=== PATIENT | female | born 1990 | race Caucasian/White ===

== ENCOUNTER → 2021-09-01 | Outpatient (CLI) | payer BC, SELFPAY ==
--- NOTE | 2021-09-01 | CER_PTH ---
PATIENT: ELIZABETH BRITTON LOC: [facility]#:[id number] AGE/SX: 31/F ROOM: RE09/01/[address]: Dr. Carley Fuentes DO : 1990 BED: DIS: 09/01/2021 SPEC #: [id number] RECD: 09/01/21 12:21 STATUS: ARCHANA MACKENZIE #: [id number] MINNIE: 09/01/21 00:[address]: Carley Fuentes DEPT: SURGICAL PATHOLOGY RECD BY: Elmo Turner ENTERED: 09/01/21 12:21 SP TYPE: CERV OTHR DR: Sandra Primary Care Phys Tissues: A - Uterine cervix, NOS B - Endocervical Procedures: Surgery Specimen Level IV HEADER OPERATION: Colposcopy PRE-OP DIAGNOSIS: LGSIL TISSUE SUBMITTED: A - 9 o?clock, B ? Endocervical curettings MICROSCOPIC DIAGNOSIS A. Cervix at 9 o?clock, biopsy: Focal HPV change present. Chronic inflammation and squamous metaplasia. See comment. B. Endocervix, curettings: Rare detached benign glandular and squamous epithelial cells. AM:rodger 09/02/2021 COMMENT A. Results from immunohistochemistry ([id number]) for surrogate HPV marker (p16) will be reported separately. Case has been reviewed in consultation with Dr. Hightower who concurs with the above diagnosis. IDC:[email or web address] MICROSCOPIC DESCRIPTION Slides are reviewed. GROSS DESCRIPTION A - Received in fixative is one container labeled with the patient's name and designated 9 o'clock cervix. The specimen consists of one irregular fragment of light mendez soft tissue that measures 0.4 x 0.4 x 0.1 cm. The specimen is totally submitted in one cassette. B - Received in fixative is one container labeled with the patient's name and designated endocervical curettings. The specimen consists of a scant amount of soft tissue. The specimen is totally submitted for cell block preparation. / JANAY:rodger 09/01/2021 TC:3 CPT: 62351 x2
--- NOTE | 2021-09-01 | IMM_PTH ---
PATIENT: ELIZABETH BRITTON LOC: [facility] U#:[id number] AGE/SX: 31/F ROOM: RE09/01/[address]: Dr. Carley Fuentes DO : 1990 BED: DIS: 09/01/2021 SPEC #: [id number] RECD: 09/02/21 14:02 STATUS: ARCHANA REDory #: [id number] MINNIE: 09/01/21 00:[address]: Carley Fuentes DEPT: IMMUNOHISTOCHEMISTRY RECD BY: Renita Brito ENTERED: 09/02/21 14:03 SP TYPE: IMMUNO OTHR DR: Sandra Primary Care Phys Tissues: A - Uterine cervix, NOS Procedures: p16 (initial) KI-67 (add) PHYSICIAN & INSTITUTION [place] [phone] SPECIMEN INFORMATION: Tissue Source: A ? Cervix at 9 o?clock Clinical Info: [facility] Specimen Number: [id number] CPT code: 26549, 69661 METHODOLOGY: Deparaffinized sections of prefer/formalin-fixed tissue or PAP/DQ stained slides are incubated with monoclonal/polyclonal antibodies/oligonucleotide probes. Localization is made via biotin free immunoperoxidase method. Appropriate controls are performed and reacted as expected. Results on target cell population are indicated in the following table: RESULTS: ANTIBODY / CLONE RESULT Block A P16 (E6H4) positive, focal, patchy Ki-67 (30-9) positive, low These tests were developed and their performance characteristics determined by [facility]. They may not have been cleared or approved by the U.S. Food and Drug Administration. The FDA has determined that such clearance or approval is not necessary. The above immunohistochemical/dualISH markers are ordered and reviewed by the Pathologist. INTERPRETATION: A. Cervix at 9 o?clock, biopsy: Consistent with mild squamous dysplasia, CHRISTINA I (LSIL). AM:rodger 09/05/2021
== END | disposition home or self-care (01) ==
LOC: LABSPEC 11:58
PROVIDERS: Visit Provider Obstetrics & Gynecology
DX: R87.612 Low grade squamous intraepithelial lesion on cytologic smear of cervix (LGSIL) (principal)
CPT/HCPCS: 88305; 88341; 88342

== ENCOUNTER → 2022-07-20 | Outpatient (CLI) | payer BC, SELFPAY ==
[2022-07-24 22:06] LABS: Chlamydia By Nucleic Acid AMP Negative (Negative)
[2022-07-25 08:58] LABS: Gonococcus By Nucleic Acid AMP Negative (Negative)
[2022-07-27 13:04] LABS: HPV APTIMA, High Risk Negative (Negative)
== END | disposition home or self-care (01) ==
PROVIDERS: Referring Provider Obstetrics & Gynecology; Visit Provider Obstetrics & Gynecology
DX: Z11.3 Encounter for screening for infections with a predominantly sexual mode of transmission (principal)
CPT/HCPCS: 87491; 87591; 87624; 88175; G0145

== ENCOUNTER → 2023-07-31 | Outpatient (CLI) | payer BC, SELFPAY ==
[2023-07-31 14:57] LABS: Hepatitis C Antibody Non-Reactive (Nonreactive); Syphilis Antibodies Non-reactive
[2023-08-02 06:09] LABS: HSV 1 IgG < 0.91 index (0.00-0.90); HSV 2 IgG < 0.91 index (0.00-0.90)
[2023-08-02 22:06] LABS: Chlamydia By Nucleic Acid AMP Negative (Negative); Gonococcus By Nucleic Acid AMP Negative (Negative)
[2023-08-06 21:07] LABS: HPV APTIMA, High Risk Positive (Negative); HPV Genotype 16, Aptima Negative (Negative); HPV Genotype 18,45 Aptima Negative (Negative)
== END | disposition home or self-care (01) ==
PROVIDERS: PCP Nurse Practitioner Family; Referring Provider Obstetrics & Gynecology; Visit Provider Obstetrics & Gynecology
DX: C53.9 Malignant neoplasm of cervix uteri, unspecified (principal); Z12.4 Encounter for screening for malignant neoplasm of cervix; Z20.2 Contact with and (suspected) exposure to infections with a predominantly sexual mode of transmission
CPT/HCPCS: 36415; 86695; 86696; 86780; 86803; 87491; 87591; 87624; 88175; G0145

== ENCOUNTER → 2024-08-11 | Outpatient (CLI) | payer BC, SELFPAY ==
[2024-08-11 13:54] LABS: HIV Nonreactive (Nonreactive); Hepatitis B Surface Antigen Nonreactive (Nonreactive); Syphilis Antibodies Nonreactive (Nonreactive)
[2024-08-13 19:08] LABS: HCV Quant. RNA PCR HCV Not Detected IU/mL (.)
[2024-08-14 06:08] LABS: Chlamydia By Nucleic Acid AMP Negative (Negative); Gonococcus By Nucleic Acid AMP Negative (Negative)
== END | disposition home or self-care (01) ==
LOC: LAB 12:25
PROVIDERS: PCP Nurse Practitioner Family; Referring Provider Obstetrics & Gynecology; Visit Provider Obstetrics & Gynecology
DX: Z11.3 Encounter for screening for infections with a predominantly sexual mode of transmission (principal); Z12.4 Encounter for screening for malignant neoplasm of cervix
CPT/HCPCS: 36415; 86703; 86780; 87340; 87491; 87522; 87591; 87624; 88175; G0145

== ENCOUNTER 2024-09-26 08:11 | Day surgery (SDC) | payer BC, SELFPAY ==
[2024-09-26] VITALS (10 sets, daily range): BP systolic 82–130; BP diastolic 47–80; PULSE 57–64; RESP 14–16; TEMP 36.6–36.9; O2SAT 92–100; BMI 33.3
[2024-09-26 08:38] LABS: Internal QC Validated? YES +Cl - CLEAR BKGD; Pregnancy, Urine Negative Negative
[2024-09-26] MEDS: Lactated Ringers 1,000 ML 15 ML IV (08:45)
[2024-09-26 08:52] LABS: Hematocrit 34.7 % (37-47); Hemoglobin 11.8 g/dL (12.0-15.0); Mean Corpuscular Hgb 30.4 pg (27.0-32.0); Mean Corpuscular Volume 89.4 fL (81-99); Mean Platelet Vol. 9.9 fl (6.2-12.0); Platelet Count 296 K/mm3 (150-450); RBC Distribution Width CV 12.5 % (11.6-14.6); Red Blood Count 3.88 M/mm3 (4.2-5.4); White Blood Count 6.3 K/mm3 (4.4-11.0)
--- NOTE | 2024-09-26 09:12 | HP.PCM_ITS ---
History and Physical Date of Admission: 09/26/24 Intake Vital Signs 08/11/2510:27 08/22/2510:41 08/22/2510:42 Height 5 ft 4.5 in 5 ft 4.5 in 5 ft 4.5 in Weight: 193 lb 192 lb 4 oz BMI 32.5 32.5 BP 127/88 H 123/80 H Intake Visit Reasons: Discuss HGSIL Personal Consultant Required: No Is patient in pain?: No Allergies No Known Allergies Allergy (Verified 08/22/24 11:41) Medications ?Medication ?Instructions ?Recorded ?Confirmed ?Type levonorgestrel 20.4 mcg/24 hr (up 1 device intrauterine ONCE 10/18/2107/30 History to 8 yrs) 52 mg intrauterine device (Liletta) citalopram 20 mg tablet (Celexa) 20 mg PO QDAY #90 tabs 08/11/24 08/22/24 Rx multivitamin 1 tab PO QDAY 08/11/24 08/22/24 History Post menopausal: No Patient : No : No PFSH Medical History COVID Contraceptive management Exercise-induced asthma LGSIL of cervix of undetermined significance PCOS (polycystic ovarian syndrome) Family History Grandmother Diabetes LymphomaGrandfather Diabetes Prostate cancer Social History Smoking Status: Never smoker alcohol intake: current details: occasionally substance use type: does not use caffeine: Yes what type of physical activity do you participate in: running, yoga and weight training frequency: 3-4 times per week seatbelt use: always do you feel safe at home: Yes additional social history: Single HPI Discuss HGSIL Details: ELIZABETH BRITTON is a 34 year old who presents for LEEP due to HGSIL (CHRISTINA 2). She has had ascus and hpv pos paps over the last 2 years. She has lots of questions about a potential LEEP procedure vs colposcopy and conservative follow up. She has decided to proceed with the LEEP procedure. History 0 Elective abortions Hx Para Spontaneous abortions Hx # Term Pregnancies Ectopic pregnancies Hx # Pregnancies Multiple births # of living children ROS Const ROS Unobtainable: All systems reviewed & are unremarkable except as noted in H Resp Resp: Reports system reviewed and no additional complaints, except as documented; Denies cough GI GI: Reports as per HPI Psych Psych: Reports system reviewed and no additional complaints, except as documented Exam Const General: cooperative, healthy appearing, comfortable and no acute distress Resp Effort & Inspection: normal respiratory effort Skin General: no rashes or lesions noted Psych Appearance: grossly normal Speech and Movement: speech and movement normal Coding Level of Care Code Off vis,est,level 4 Diagnoses HPV test positive HGSIL (high grade squamous intraepithelial lesion) on Pap smear of cervix R87.613 Assessment and Plan Assessment and Plan (1) HPV test positive: Status: Acute Comment: Repeat pap in 1 yr (2) HGSIL (high grade squamous intraepithelial lesion) on Pap smear of cervix: Status: Acute Plan After discussing the patient's diagnosis and treatment plan options, patient wishes to proceed with surgical management. I have discussed with the patient the risks, benefits, and alternatives of the procedure which include but are not limited to risks of anesthesia, bleeding, infection, possible damage to bowel, bladder, or surrounding vasculature which could lead to additional surgery to evaluate any complications. Patient agrees to procedure and wishes to proceed. ACOG/uptodate references given for additional information regarding procedure. plan for LEEP procedure.
--- NOTE | 2024-09-26 09:26 | DCINST_ITS ---
Discharge Instructions Diet Discharge Diet: No restrictions DC O2, CPAP, BIPAP needs Home O2 Discharge instructions: No Dressing / Incision Discharge Activity: Return to Normal Activity and [place] Drive (while taking narcotic pain mediations.) May resume sexual activity in: 4 weeks (Nothing in the vagina for 4 weeks.) Dressing / Incision Call your doctor if you observe: Fever of 101 or Higher and Using more than 1 pad per hour Follow Up Care Please Follow Up With: Carley Fuentes DO When: Call [phone] for follow-up appointment. Test Results: Test results from this visit will be discussed in further detail at your follow- up appointment, if applicable. Discharge Plan Admission Primary Reason for Your Visit: LEEP (loop electrocautery excision procedure) of the cervix Attending Provider: Carley Fuentes Primary Care Provider: Glendy Porter NP Instructions Print Language: Occitan Discharge Orders/Prescriptions Prescriptions: New oxycodone-acetaminophen [Percocet] 5-325 mg tablet 1 tab PO Q4H PRN (Reason: pain) 7 Days Qty: 5 0RF naproxen 500 mg tablet 500 mg PO BID PRN (Reason: pain) Qty: 14 0RF Continued Liletta 20.1 mcg/24 hrs (6 yrs) 52 mg intrauterine device 1 device intrauterine ONCE Rx Instructions: as a single dose multivitamin Tablet 1 tab PO QDAY citalopram [Celexa] 20 mg tablet 20 mg PO QDAY Qty: 90 4RF albuterol sulfate 90 mcg/actuation HFA aerosol inhaler 2 puff inhalation Q4H PRN PRN (Reason: wheezing) Referrals / Follow Up: Glendy Porter NP, CONSTRUCTION IRONWORKER HELPER-C [Primary Care Provider] - Disposition Disposition (needs filled in before D/C Order can be placed): Home, Self Care
--- NOTE | 2024-09-26 09:29 | PRE.ANES_ITS ---
ASA Classification* ASA Classification ASA Classification: 2 Assessment & Plan Anesthesia* Anesthesia Assessment Anesthesia Assessment: Discussed sedation and/or anesthesia options, risks, benefits, and alternatives with patient/parents/legal guardian/POA. Questions invited. The patient/parents/legal guardian/POA seems to understand and agrees to proceed with anesthesia plan. Reviewed the physical assessment, medical history, allergy history and patient home medications list prior to surgery/procedure/anesthetic and documented any changes. Performed airway and anesthesia risk assessments. Anesthesia Type Anesthesia Type: MAC History Source History Obtained from:: Patient and Chart Anesthesia Focused Assessment* Temperature: 98.3 F Pulse Rate: 64 Blood Pressure: 130/80 Respiratory Rate: 16 Pulse Ox: 98 Oxygen Delivery Method: Room Air Airway Assessment Mouth opens: 1 cm Mallampati Score: I Teeth Condition: Intact Neck Range of motion (ROM): Full ROM Focused Labs Anesthesia Preop lab: CBC WBC 6.3 K/mm3 (4.4-11.0) 09/26/24 08:35 09/26/24 RBC 3.88 M/mm3 (4.2-5.4) L 09/26/24 08:35 09/26/24 Hgb 11.8 g/dL (12.0-15.0) L 09/26/24 08:35 5 Hct 34.7 % (37-47) L 09/26/24 08:35 09/26/24 Plt Count 296 K/mm3 (150-450) 09/26/24 08:35 09/26/24 CHEMISTRY COAG Urine Test Negative Negative 09/26/24 08:20 09/26/24 Tst Clinic Negative 09/01/21 10:48 09/01/21 Pre-Assessment Diagnosis/Proposed Procedure Planned Operative Procedure(s): Leep Cone Anesthesia History Anesthesia History - supervisor maple products: Anesthesia History - supervisor maple products Hx Hospitalization No 09/11/24 15:05 Any Problems With Anesthesia No 09/11/24 15:05 Cholinesterase deficiency No 09/11/24 15:05 You/Your Family Experience No 09/11/24 15:05 fever (hyperthermia) with Relationship Recent Exposure to Contagious No 09/26/24 08:28 Disease Does patient have nerve No 09/11/24 15:05 stimulator Patient instructed to have device shut off --Does patient have Pacemaker No 09/26/24 08:28 or ICD? When Was Last Pacemaker Check QUESTION #4 FULL TEXT: You/Your Family Experience fever (hyperthermia) with Anesthesia Last Oral Intake Last Oral intake: Last Oral Intake NPO since 07:00 09/26/24 08:28 Meds taken in AM with sips of No 09/26/24 08:28 water? Meds patient instructed to take am of surgery Any additional information?: Yes NPO since: 07:00 (Patient had water at 7 AM.) Meds taken in AM with sips of water?: No PONV PONV - supervisor maple products: PONV - supervisor maple products Female Yes 09/11/24 15:05 HX of Motion Sickness No 09/11/24 15:05 HX of N/V After Surgery No 09/11/24 15:05 Non-Smoker Yes 09/11/24 15:05 Duration of Surgery greater No 09/11/24 15:05 than 60 minutes Number of Risk Factors 2 09/11/24 15:05 PONV Score Moderate Risk 09/11/24 15:05 Height & Weight Height & Weight: Anesthesia: Height & Weight Height 5 ft 4 in 09/26/24 08:28 Weight: 88 kg 09/26/24 08:28 Body Mass Index (BMI) 33.3 09/26/24 08:28 Respiratory Assessment Respiratory Assessment - supervisor maple products: Respiratory Tract Infection Hx - supervisor maple products Hx Respiratory Tract Infection No 09/11/24 15:05 STOP Sleep Apnea STOP Sleep Apnea - supervisor maple products: STOP Sleep Apnea - supervisor maple products Hx Hypertension No 09/11/24 15:05 Hx Sleep Apnea No 09/11/24 15:05 CPAP BIPAP Do you snore loudly (louder No 09/11/24 15:05 than talking or can be heard Do you often feel tired/ No 09/11/24 15:05 fatigued/ sleepy during daytime? Has anyone observed you stop No 09/11/24 15:05 breathing during sleep? STOP Results Negative 09/11/24 15:05 QUESTION #5 FULL TEXT : Do you snore loudly (louder than talking or can be heard through closed doors)? 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 Specify any problems Hx of Preganancy in last 3 No 09/11/24 15:05 Months Nurse Filling Out Transfusion JZOLLINGE 09/11/24 15:05 & Questions: Date: 09/11/24 09/11/24 15:05 Time: 15:07 09/11/24 15:05 Patient unable to answer at this time (ie. confused, unrespo /Reproduction History /Reproductive History - supervisor maple products: /Reproductive Hx- supervisor maple products Hx Now No 09/11/24 15:05 Gestational Age (in weeks): EDC: Hx Hx Para Hx Section SAB No 09/11/24 15:05 Active Medications Active Medications: Current Medications Generic Name Dose Route Start Last Admin Trade Name Freq PRN Reason Stop Dose Admin Lactated Ringer's 1,000 mls @ 15 mls/hr 09/26/24 08:30 09/26/24 08:45 IV 15 mls/hr .Q48H MICK Administration PFSH Medical History Wears glasses Anxiety Heartburn Non-smoker Asthma Heart murmur COVID Contraceptive management Exercise-induced asthma LGSIL of cervix of undetermined significance PCOS (polycystic ovarian syndrome) Home Medications ?Medication ?Instructions ?Recorded ?Last Taken ?Type levonorgestrel 20.4 mcg/24 hr (up 1 device intrauterin e ONCE 10/18/21 Unknown History to 8 yrs) 52 mg intrauterine device (Liletta) citalopram 20 mg tablet (Celexa) 20 mg PO QDAY #90 tab s 08/11/24 Unknown Rx multivitamin 1 tab PO QDAY 08/11/24 Unkno wn History albuterol sulfate 90 mcg/actuation 2 puff inhalation Q 4H PRN PRN 09/11/24 Unknown History aerosol inhaler wheezing naproxen 500 mg tablet 500 mg PO BID PRN pain #14 t abs 09/26/24 Unknown Rx oxycodone-acetaminophen 5 mg-325 1 tab PO Q4H PRN pain 7 days #5 09/26/24 Unknown Rx mg tablet (Percocet) tabs Allergy/AdvReac Type Severity Reaction Status Date / Time No Known Allergies Allergy Verified 09/26/24 08:27 Family History Grandmother Diabetes Lymphoma Grandfather Diabetes Prostate cancer Social History Smoking Status: Never smoker alcohol intake: current details: occasionally substance use type: does not use caffeine: Yes what type of physical activity do you participate in: running, yoga and weight training frequency: 3-4 times per week seatbelt use: always do you feel safe at home: Yes additional social history: Single Review of Systems (Anesthesia) ROS Narrative System reviewed and no additional complaints, except as documented. Physical Exam Resp clear to auscultation bilaterally
--- NOTE | 2024-09-26 09:40 | CER_PTH ---
PATIENT: ELIZABETH BRITTON LOC: [facility] U#:[id number] AGE/SX: 34/F ROOM: RE09/26/[address]: Dr. Carley Fuentes DO : 1990 BED: DIS: 09/26/2024 SPEC #: [id number] RECD: 09/26/24 10:52 STATUS: ARCHANA MANN #: [id number] MINNIE: 09/26/24 09:[address]: Carley Fuentes DEPT: SURGICAL PATHOLOGY RECD BY: Sandip Bhandari ENTERED: 09/26/24 11:04 SP TYPE: CERV OTHR DR: Glendy Porter, DIRECTOR SUPPLIER QUALITY-C Tissues: A - UTERINE CERVIX LEEP B - Uterine cervix, NOS Procedures: Surgery Specimen Level IV Surgery Specimen Level HEADER OPERATION: Leep cone PRE-OP DIAGNOSIS: HGSIL on PAP smear of cervix TISSUE SUBMITTED: A- Endocervical curettage, B- Cervix tissue *suture at 12o'clock* MICROSCOPIC DIAGNOSIS A. Endocervix, curettage: * High grade squamous intraepithelial lesion. B. Cervix, LEEP cone excision:- * High grade squamous intraepithelial lesion (severe dysplasia, CHRISTINA 3) lesion involving the endocervical surgical margin at 12-3 o'clock. * High grade squamous intraepithelial lesion (moderate dysplasia, CHRISTINA 2) involving the endocervical margin of the second largest piece. MICROSCOPIC DESCRIPTION Slides are reviewed. GROSS DESCRIPTION A. Received in formalin in a container labeled with the patient's name, date of , and endocervical curettage are multiple small mendez fragments of soft tissue admixed with blood and mucus measuring approximately 1.5 x 1.2 x 0.2 cm in aggregate. Submitted in toto in A1. B. Received in formalin in a container labeled with the patient's name, date of , and cervix tissue-suture is @12 o'clock are 4 mendez-pink and shaggy fragments of soft tissue ranging from 1.1 x 0.7 x 0.3 cm to 2.1 x 1.3 x 1.0 cm. The largest fragment exhibits 2 shaggy pieces of mendez-pink soft tissue sutured together with a stitch, indicating 12:00, creating a C-shape. The sutured fragments exhibit a mendez-pink, wrinkled to smooth probable ectocervical surface. The internal aspect of the C-shape is a presumed cervical os measuring 0.6 x 0.6 cm when closed. The roughened and cauterized ectocervical resection margin is inked black, and the probable endocervical margin is inked green. Serial sections reveal mendez-pink, uniform, rubbery cut surfaces. The second largest fragment (1.4 x 1.1 x 0.4 cm) exhibits a 1.4 x 0.3 cm strip of mendez-pink, wrinkled possible ectocervical surface. No distinct cervical os is identified. The cauterized resection margin is inked black, and it is sectioned to reveal uniform mendez-pink surfaces. The smallest 2 fragments exhibit small, previously disrupted mendez-pink and wrinkled possible ectocervix. The surrounding cauterized resection margin is inked black, and sectioning reveals unremarkable cut surfaces. The specimen is submitted entirely as follows:B1-2. Sutured fragment submitted sequentially from 12:00 to approximately 3:00B3. Sutured fragment submitted sequentially from approximately 9:00 to 12:00 B4. Second-largest fragmentB5. Smallest 2 fragmentsDigital images are taken. [facility] 09-26-2024 CPT:08971,74144
--- NOTE | 2024-09-26 10:05 | OP.PCM_ITS ---
Problems Associated Problem List Diagnoses (1) HGSIL (high grade squamous intraepithelial lesion) on Pap smear of cervix: Multi Select Codes Urinary/Genital Urinary/Genital CPT Codes: 36715 LEEP Operative Report (Standard) Operative Information Date of Procedure: 09/26/24 Pre-Operative Diagnosis: HGSIL, nora 2 cervical pathology Post-Operative Diagnosis: HGSIL, nora 2 cervical pathology Surgery/Procedure Performed: Loop electrocautery excision procedure screening unit registered nurse: No Type of Anesthesia: MAC/Supplemental/Local RN Documented Start/Stop Times: Operation Date: 09/26/24 09:40 Case Time Into Pre-Op 09/26/24 08:22 Procedure Start Time: 10:11 Procedure Stop Time: 10:23 Select all DRAINS/GRAFTS/IMPLANTS that apply: None Estimated Blood Loss: 10cc Specimen collected: Yes Description of specimen(s) removed: cervical biopsy Description of surgery: Patient was taken to the operating room and placed under MAC anesthesia prepped and draped in normal sterile fashion the dorsal lithotomy position. Paracervi ria block was placed with 1% lidocaine and using a loop electrode the outer part of the cervix was removed including the squamocolumnar junction. Endocervical curettings were taken and the base of the cervix was cauterized around the borders and the base to obtain excellent hemostasis. attempt was made during the procedure to avoid the IUD strings, but they were inadvertantly burned during when trying to achieve hemostasis. Monsel's paste was placed and patient was awoken and taken recovery in stable condition. Surgical Findings: no gross abnormalities of the cervix Complications Complications: No Admit VTE Documentation VTE Present on Admission: No VTE Mechan Device Prophylaxis: SCD's VTE Pharm Prophylaxis ordered?: No Reason prophylaxis not ordered: Treatment Not Indicated
[2024-09-26] MEDS: FERRIC SUBSULFATE 8 GM SOLN (10:20)
[2024-09-26] MEDS: Lidocaine 1% (20 ml mdv) 20 ML Vial (10:23)
[2024-09-26] MEDS: Iodine/Potassium Iodide 14ML Bottle 1 DRP TOPICAL (10:23)
--- NOTE | 2024-09-26 10:38 | PCM.POST.ANE ---
Anesthesia: Postop Eval I Current Vital Signs Temperature: 98.5 F Pulse Rate: 58 Blood Pressure: 92/51 Respiratory Rate: 14 Pulse Ox: 92 Assessment Airway patent: Yes Spontaneous unlabored respirations: Yes nausea: No Vomiting: No Anesthesia Complication: No Fluid Hydration Crystalloid volume administer (ml): 800 Total IV fluid infused: 800 Progress Note Anesthesia document: Postop Eval 1 completed: Yes
[2024-09-26] MEDS: Phenazopyridine 95 MG Tablet 190 MG PO (11:46)
--- NOTE | 2024-09-26 16:38 | POSTOPAN2_ITS ---
Anesthesia Postop Eval I Sum Postop Eval Completion status Anesthesia document: Postop Eval 1 completed: Yes Anesthesia Postop Eval I Summary Anesthesia Postop Eval I Summary: Anesthesia Postop Eval I: Assessment Summary Airway patent Yes 09/26/24 10:38 PROBATE [email or web address] Spontaneous unlabored Yes 09/26/24 10:38 PROBATE [email or web address] respirations Mental status nausea No 09/26/24 10:38 PROBATE [email or web address] Vomiting No 09/26/24 10:38 PROBATE [email or web address] Anesthesia Postop Eval I: Fluid Summary Crystalloid volume administer 800 09/26/24 10:38 PROBATE JUDGE.[email or web address] (ml) Colloids volume administered ( ml) Blood Product volume administered (ml) Total IV fluid infused 800 09/26/24 10:38 PROBATE [email or web address] Anesthesia Postop Eval I: Summary Notes Anesthesia Complication No 09/26/24 10:38 PROBATE [email or web address] Anesthesia Complication Comment: Post-operative progress note Anesthesia: Postop Eval II Evaluation Mental status: Awake Pain Level: 2 nausea: No Vomiting: No
--- NOTE | 2024-09-26 16:38 | PCM.POSTANE2 ---
Anesthesia Postop Eval I Sum Postop Eval Completion status Anesthesia document: Postop Eval 1 completed: Yes Anesthesia Postop Eval I Summary Anesthesia Postop Eval I Summary: Anesthesia Postop Eval I: Assessment Summary Airway patent Yes 09/26/24 10:38 VIDEO [email or web address] Spontaneous unlabored Yes 09/26/24 10:38 VIDEO [email or web address] respirations Mental status nausea No 09/26/24 10:38 VIDEO [email or web address] Vomiting No 09/26/24 10:38 VIDEO [email or web address] Anesthesia Postop Eval I: Fluid Summary Crystalloid volume administer 800 09/26/24 10:38 VIDEO EDITOR.[email or web address] (ml) Colloids volume administered ( ml) Blood Product volume administered (ml) Total IV fluid infused 800 09/26/24 10:38 VIDEO [email or web address] Anesthesia Postop Eval I: Summary Notes Anesthesia Complication No 09/26/24 10:38 VIDEO EDITOR.[email or web address] Anesthesia Complication Comment: Post-operative progress note Anesthesia: Postop Eval II Evaluation Mental status: Awake Pain Level: 2 nausea: No Vomiting: No
== END 2024-09-26 12:51 | disposition home or self-care (01) ==
LOC: SDC 08:12 → AC 08:16
PROVIDERS: Anesthesiology; PCP Nurse Practitioner Family; Referring Provider Obstetrics & Gynecology; Visit Provider Obstetrics & Gynecology
PROC: 0UBC7ZZ Excision of Cervix, Via Natural or Artificial Opening (ICD-10-PCS; CPT 57522; principal; 2024-09-26 09:25)
DX: R87.613 High grade squamous intraepithelial lesion on cytologic smear of cervix (HGSIL) (principal); E28.2 Polycystic ovarian syndrome; Z86.16 Personal history of COVID-19; Z79.51 Long term (current) use of inhaled steroids; Z79.899 Other long term (current) drug therapy
CPT/HCPCS: 57522; 00940; 81025; 85027; 86850; 86900; 86901; 88305; 88309